=== PATIENT | female | born 1960 | race Caucasian/White ===

== ENCOUNTER 2024-03-31 11:09 | Emergency (ER) | payer MEDICARE ==
[2024-03-31] MEDS: Diphtheria,Pertussis(Acell),Tetanus Vaccine 0.5 ML Syringe IM ONE (11:27)
[2024-03-31] MEDS: Lidocaine 1% PF 2 ML SDV INJECT ONE (11:28)
[2024-03-31] MEDS: Lidocaine/Epineph/Tetracaine 3 ML Syringe TOP ONE (11:28)
== END 2024-03-31 13:04 | disposition home or self-care (01) ==
LOC: MW.ED 11:09
DX: S92.412A Displaced fracture of proximal phalanx of left great toe, initial encounter for closed fracture (principal); S91.115A Laceration without foreign body of left lesser toe(s) without damage to nail, initial encounter; Z23 Encounter for immunization; Z75.8 Other problems related to medical facilities and other health care; Z88.1 Allergy status to other antibiotic agents; Z88.0 Allergy status to penicillin; X50.1XXA Overexertion from prolonged static or awkward postures, initial encounter
CPT/HCPCS: 12001; 73620; 90471; 90715; 99283; A9270; J3490